=== PATIENT | male | born 1995 | race Caucasian/White ===

== ENCOUNTER 2019-01-31 22:31 | Emergency (ER) | payer OTHER ==
[~2019-01-31] VITALS: Ht 182.9 cm; Wt 83.9 kg
--- NOTE | 2019-01-31 22:35 | NUR ---
Patient to ER bed H1 to gown for evaluation. Side rails up. Assumed care.
[2019-01-31 22:37] VITALS: BP_SYST 140
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
--- NOTE | 2019-01-31 22:45 | NUR ---
ER at bedside examining patient.
[2019-01-31 22:56] VITALS: BP_SYST 140
--- NOTE | 2019-01-31 23:04 | NUR ---
Patient given written and verbal discharge instructions and verbalizes understanding. ER MD discussed with patient the results and treatment provided. Patient in stable condition. ID arm band removed. Rx not given. Patient educated on pain management and to follow up with PMD. Pain Scale 0/10. Opportunity for questions provided and answered. Medication side effect fact sheet provided.
== END 2019-01-31 23:04 ==
LOC: SED 22:31
DX: Z02.89 Encounter for other administrative examinations (principal); V43.52XA Car driver injured in collision with other type car in traffic accident, initial encounter; Y93.89 Activity, other specified; Y92.89 Other specified places as the place of occurrence of the external cause; Y99.8 Other external cause status
CPT/HCPCS: 99283